=== PATIENT | female | born 1990 | race American Indian/Alaskan Native ===

== ENCOUNTER 2017-08-19 00:54 | Emergency (ER) | payer OTHER ==
[2017-08-19] MEDS ORDERED: MOTRIN ONE (03:12)
[2017-08-19] MEDS ORDERED: MOTRIN PO ONE (03:33)
[2017-08-19 04:17] LABS: HCG Qualitative,Urine Negative (Negative)
--- NOTE | 2017-08-19 05:05 | Emergency Department Report ---
ED Laceration HPI - HPI Chief Complaint: Wound/Laceration Stated Complaint: LEFT HAND LACERATION Time Seen by Provider: 08/19/17 05:05 Occurred When: Today Location: Upper Extremity (glass injury to the left hand with laceration to left middle finger.) Severity: severe (10/10, throbbing pain. Pain is worse with movement and palpation and better with rest.) Tetanus Status: Up to Date (less than 5 years per patient) Laceration Symptoms: Yes Pain (10/10 to left middle finger), No Foreign Body Sensation, No Numbness, No Weakness Other History: This is a 26-year-old female here with her friend. 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 She says she had a glass in her hand and when she fell she sustained a laceration to her left middle finger small abrasions to other fingers of left hand. She is reportedly left hip pain and left shoulder pain. Pain is 10 out of 10 left finger, throbbing and achy. Worse with movement and palpation and better with rest. No medication taken prior to coming to the hospital. He reports that ear was bleeding a lot so pressure dressing was applied to site. Denies any numbness or tingling to extremities. Denies any head injury or loss of consciousness. Denies any back pain or neck pain. ED Review of Systems ROS: Stated complaint: LEFT HAND LACERATION Other details as noted in HPI Constitutional: denies: chills, fever Eyes: denies: vision change Respiratory: denies: cough, shortness of breath, SOB with exertion, SOB at rest , wheezing Cardiovascular: denies: chest pain, palpitations, edema, syncope Gastrointestinal: abdominal pain. denies: nausea, vomiting Musculoskeletal: arthralgia. denies: back pain, joint swelling, myalgia Skin: other (laceration to left middle finger and abrasions to left hand and other fingers of left hand.). denies: rash, lesions Neurological: denies: headache, weakness, numbness, paresthesias, abnormal gait , vertigo ED Past Medical Hx - Past Medical History Previous Medical History?: No - Surgical History Past Surgical History?: No - Family History Family history: no significant - Social History Smoking Status: Never Smoker Substance Use Type: None - Medications Home Medications: Home Medications Medication Instructions Recorded Confirmed Last Taken Type Acetaminophen/Codeine [Tylenol 1 tab PO Q6H PRN #12 tab 08/19/17 Unknown Rx /Codeine # 3 tab] Cephalexin [Keflex] 500 mg PO Q8HR 7 Days #21 cap 08/19/17 Unknown Rx Ibuprofen [Motrin] 600 mg PO Q8H PRN #12 tablet 08/19/17 Unknown Rx Laceration Physical Exam - Exam General: Vital signs noted. No distress. Alert and acting appropriately. This is a 26-year-old female well-nourished well-developed in no acute distress. Head: Normocephalic, atraumatic. Neck: Supple, full range of motion and no C-spine tenderness Extremity: No clubbing, cyanosis or edema. Pulses 2+ extremities and no neurovascular compromise. Patient with scratches to left hand and laceration to left middle finger. Minimal swelling to the left middle finger and no restriction in movement. Full range of motion to all extremities and +5 strength in all extremities. Patient with superficial laceration, 2 cm, linear to left middle finger at mid phalanx. No tendons or bones seen. Patient with superficial ecchymosis area to left hip and proximal other side. No joint Effusion or deformity. Lungs: Clear to auscultation bilaterally, no rhonchi wheezes or rales. Negative chest wall tenderness. CV: S1, S2. Regular rate and rhythm Back: No vertebral or paraspinal tenderness. Full range of motion. Wound Length (cm): 2 (one abrasion to palmar side of left thumb proximally) Laceration Location: Upper Extremity (patient with laceration to left middle finger, palmar side, mid phalanx. Tender to palpate. No foreign body noted.) Full Body Front + Back: 1 - Patient with 2 cm linear laceration to left middle finger. Noted bleeding. Ulnar and radial pulses are intact. Patient with superficial scratch to her left hand at proximal thumb, palmar side. Tetanus vaccine is up- to-date Laceration Exam: Yes Normal Distal CMS (+2 radial and ulnar pulses. No neurovascular compromise. No clubbing, cyanosis or edema.), No Foreign Body, No Exposed Tendon, Vessel, or Nerve, No Tendon Injury ED Course Vital Signs 08/19/17 08/19/17 01:26 03:12 Temperature 98.6 F 98.6 F Pulse Rate 89 89 Respiratory 18 16 Rate Blood Pressure 139/87 139/87 O2 Sat by Pulse 100 100 Oximetry - Reevaluation(s) Reevaluation #1: 08/19/17 06:16 Patient received [place] 5/325 2 tablets by mouth which relieved her pain. See procedure note for details on laceration repair. See procedure note for finger splinted. Received Keflex 500 mg by mouth and emergency room. - Laceration /Wound Repair Left Medial Palm Hand Wound Location: upper extremity (left mid phalanx of middle finger, palmar aspect.) Wound Length (cm): 2 Wound's Depth, Shape: superficial, linear Wound Explored: no foreign body removed Irrigated w/ Saline (ccs): 500 Betadine Prep?: Yes Anesthesia: 1% Lidocaine Volume Anesthetic (ccs): 3 Wound Debrided: moderate Wound Repaired With: sutures Suture Size/Type: 3:0 (Ethilon) Number of Sutures: 7 Layer Closure?: No Sterile Dressing Applied?: Yes (tolerated procedure well.) - Orthopedic Splinting/Casting Injury #1 Side: left Upper Extremity Injury Location: finger (left middle finger) Upper Extremity Immobilizer: aluminum form splint Additional Comments: She will good color, sensation, temperature and movement to fingers of left hand. +2 pulses radial and ulnar. ED Medical Decision Making - Radiology Data Radiology results: report reviewed X-ray of left hip and left shoulder dictated by radiologist and report reviewed by myself and no acute abdomen allergies seen. She reports below for details X-ray of left hand dictated by radiologist shows possibly displace fracture of mid phalanx of middle finger palmar side extending dorsally. Report reviewed by myself and see below for details. Patient: MERCEDES VALLES MR#: [id number] : 1990 Acct:[id number] Age/Sex: 26 / F ADM Date: 08/19/17 Loc: ED Attending Dr: Ordering Physician: DEEDEE GARCIA MD Date of Service: 08/19/17 Procedure(s): XR shoulder 2+V LT Accession Number(s): [id number] cc: DEEDEE GARCIA MD Fluoro Time In Minutes: FINAL REPORT EXAM: XR SHOULDER 2+V LT HISTORY: left shoulder pain post fall COMPARISONS: None. FINDINGS: Three views left shoulder Left glenohumeral joint appears intact. Acromioclavicular and coracoclavicular intervals are within normal limits. No displaced fracture. Incomplete evaluation of the adjacent left lung is unremarkable. IMPRESSION: Unremarkable left shoulder radiographs. Transcribed By: MB Dictated By: JEANNIE ARDON MD Electronically Authenticated By: JEANNIE ARDON MD Signed Date/Time: 08/19/17612 DD/ 2 TD/TT: 08/19/17612 Patient: MERCEDES VALLES MR#: [id number] : 1990 Acct:[id number] Age/Sex: 26 / F ADM Date: 08/19/17 Loc: ED Attending Dr: Ordering Physician: DEEDEE GARCIA MD Date of Service: 08/19/17 Procedure(s): XR hand 2V LT Accession Number(s): [id number] cc: DEEDEE GARCIA MD Fluoro Time In Minutes: FINAL REPORT EXAM: XR HAND 2V LT HISTORY: left hand pain COMPARISONS: None. FINDINGS: AP and lateral views left hand Marked soft tissue swelling surrounding the left middle finger proximal interphalangeal joint. No radiodense foreign body or gross malalignment. Question minimally displaced 1 millimeter fracture fragment at the dorsal and proximal aspect of the 3rd middle phalanx on lateral view. IMPRESSION: Soft tissue injury in the left middle finger without radiodense foreign body. Question minimally displaced 1 millimeter fracture fragment at the dorsal and proximal aspect of the 3rd middle phalanx on lateral view. Findings [facility] [address] [place] [address] XRay Report Signed Patient: MERCEDES VALLES MR#: [id number] : 1990 Acct:[id number] Age/Sex: 26 / F ADM Date: 08/19/17 Loc: ED Attending Dr: Ordering Physician: DEEDEE GARCIA MD Date of Service: 08/19/17 Procedure(s): XR hip 2-3V LT Accession Number(s): [id number] cc: DEEDEE GARCIA MD Fluoro Time In Minutes: FINAL REPORT EXAM: XR HIP 2-3V LT HISTORY: left hip pain COMPARISONS: None. FINDINGS: AP and lateral views left hip Left hip joint is intact. Normal symmetric appearance of the hip joint spaces. No fractures. IMPRESSION: Unremarkable left hip radiographs. Transcribed By: MB Dictated By: JEANNIE ARDON MD Electronically Authenticated By: JEANNIE ARDON MD Signed Date/Time: 08/19/17612 DD/ 2 TD/TT: 08/19/17612 - Medical Decision Making This is a 26-year-old female presents to emergency room with her significant other. 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 Patient is here to be evaluated. Patient examined by myself and she is neurologically intact, she has no neurovascular compromise. She is superficial ecchymotic area to left hip, full range of motion to all extremities. Tender to palpate left hip area, she has laceration with soft tissue swelling to left middle finger at mid phalanx. X- ray of left hand reveals patient with soft tissue swelling to left middle finger , no foreign body seen, report possible fracture of mid phalanx, palmar extending into dorsal aspect. Please see procedure note for splinted and laceration repair. Laceration to left middle finger superficial and 2 cm, no bony involvement, no tendon involvement. Bleeding is controlled. She received [place] 5/325 2 tablets by mouth for pain which controlled her pain. She received Keflex 500 mg by mouth to prevent infection. I discussed the patient her x-ray findings and she voiced understanding. I discussed with her she needs to follow-up with orthopedic doctor for possible repeat x-ray of left hand after swelling has gone down because radiologist is questioning whether she has a fracture. She voiced understanding. Possible left, mid phalanx left middle finger fracture-splint placed and patient to follow-up with orthopedic doctor in 2-3 days. Ecchymosis left hip-Rice therapy Arthralgia multiple sites-controlled with [place]. The patient will be discharged home in Tylenol 3, Motrin. Laceration left middle finger-see procedure note for detail on laceration repair. Patient started on Keflex 500 mg by mouth. Will send home on Keflex Patient educated on suture care, splint, x-ray report, need to follow up with primary care and also orthopedic doctor. She voiced understanding. She is also educated on Rice therapy. Patient discharged home in stable condition with her family member, vital signs are stable and she is afebrile. Pain is controlled. She says she is feeling better. Discharged home to follow up with primary care and orthopedic doctor in 2-3 days. She was given prescription for Keflex, Motrin and Tylenol No. 3. - Differential Diagnosis open versus closed FX, contusion ,foreign body, sprain, strain, MSK pain Critical care attestation.: If time is entered above; I have spent that time in minutes in the direct care of this critically ill patient, excluding procedure time. ED Disposition Clinical Impression: Arthralgia of multiple sites Fall, accidental Qualifiers: Encounter type: initial encounter Qualified Code(s): W19.XXXA - Unspecified fall, initial encounter Laceration of left middle finger w/o foreign body w/o damage to nail Qualifiers: Encounter type: initial encounter Qualified Code(s): S61.213A - Laceration without foreign body of left middle finger without damage to nail, initial encounter Fracture of middle phalanx of left middle finger Qualifiers: Encounter type: initial encounter Fracture type: closed Fracture alignment: displaced Qualified Code(s): S62.623A - Displaced fracture of middle phalanx of left middle finger, initial encounter for closed fracture Traumatic ecchymosis of left hip Qualifiers: Encounter type: initial encounter Qualified Code(s): S70.02XA - Contusion of left hip, initial encounter Disposition: TO HOME OR SELFCARE Is pt being admited?: No Does the pt Need Aspirin: No Condition: Stable Instructions: Suture Care (ED), Laceration (ED), Arthralgia (ED), RICE Therapy (ED), Finger Fracture (ED) Additional Instructions: Please follow-up with your primary care physician in 2-3 days and if he do not have a primary care physician follow-up with [facility] Keep affected area clean and dry Please return to the emergency room in 7-10 days to have stitches removed Take antibiotic as prescribed Radiology reports that x-ray of left middle finger shows possible displaced fracture. Keep metal splint on and follow up with orthopedic doctor in 2-3 days. You will need a repeat x-ray after swelling subsided to left middle finger. See discharge instructions on rice therapy. Please do not drive or operate heavy machinery while taking Tylenol No. 3 as this medication causes drowsiness. Prescriptions: Acetaminophen/Codeine [Tylenol /Codeine # 3 tab] 1 tab PO Q6H PRN #12 tab PRN Reason: severe pain Cephalexin [Keflex] 500 mg PO Q8HR 7 Days #21 cap Ibuprofen [Motrin] 600 mg PO Q8H PRN #12 tablet PRN Reason: Pain Referrals: return to, the emergency room in 7-10 days [Other] - 7-10 days [facility] [Outside] - 2-3 Days PRIMARY CARE, [Primary Care Provider] - 2-3 Days KATHY PARHAM MD [Staff Physician] - 2-3 Days Forms: Accompanied Note, Work/School Release Form(ED)
[2017-08-19] MEDS ORDERED: XYLOCAINE 1% MPF 5 mL INFILTRATI ONE (05:07)
[2017-08-19] MEDS ORDERED: NACL 0.9% IR ONE (05:07)
[2017-08-19] MEDS ORDERED: NORCO 5/325 PO ONE (05:07)
[2017-08-19] MEDS ORDERED: KEFLEX PO ONE (05:07)
--- NOTE | 2017-08-19 06:16 | XRay Report ---
FINAL REPORT EXAM: XR HAND 2V LT HISTORY: left hand pain COMPARISONS: None. FINDINGS: AP and lateral views left hand Marked soft tissue swelling surrounding the left middle finger proximal interphalangeal joint. No radiodense foreign body or gross malalignment. Question minimally displaced 1 millimeter fracture fragment at the dorsal and proximal aspect of the 3rd middle phalanx on lateral view. IMPRESSION: Soft tissue injury in the left middle finger without radiodense foreign body. Question minimally displaced 1 millimeter fracture fragment at the dorsal and proximal aspect of the 3rd middle phalanx on lateral view.
--- NOTE | 2017-08-19 06:18 | XRay Report ---
FINAL REPORT EXAM: XR SHOULDER 2+V LT HISTORY: left shoulder pain post fall COMPARISONS: None. FINDINGS: Three views left shoulder Left glenohumeral joint appears intact. Acromioclavicular and coracoclavicular intervals are within normal limits. No displaced fracture. Incomplete evaluation of the adjacent left lung is unremarkable. IMPRESSION: Unremarkable left shoulder radiographs.
--- NOTE | 2017-08-19 06:18 | XRay Report ---
FINAL REPORT EXAM: XR HIP 2-3V LT HISTORY: left hip pain COMPARISONS: None. FINDINGS: AP and lateral views left hip Left hip joint is intact. Normal symmetric appearance of the hip joint spaces. No fractures. IMPRESSION: Unremarkable left hip radiographs.
[2017-08-19 06:34] VITALS: BP 128/87
== END 2017-08-19 06:42 | disposition home or self-care (01) ==
LOC: ED 00:54
DX: S62.623A Displaced fracture of middle phalanx of left middle finger, initial encounter for closed fracture (principal); S61.213A Laceration without foreign body of left middle finger without damage to nail, initial encounter; S70.02XA Contusion of left hip, initial encounter; S60.512A Abrasion of left hand, initial encounter; S60.312A Abrasion of left thumb, initial encounter; W01.110A Fall on same level from slipping, tripping and stumbling with subsequent striking against sharp glass, initial encounter; Y93.89 Activity, other specified; Y92.89 Other specified places as the place of occurrence of the external cause; Y99.8 Other external cause status
CPT/HCPCS: 81025; 99284